=== PATIENT | male | born 1955 | race Caucasian/White ===

== ENCOUNTER 2017-04-13 08:46 | Emergency (ER) | payer OTHER ==
[~2017-04-13] VITALS: Ht 182.9 cm; Wt 90.5 kg
[~2017-04-13 08:46] MED LIST: LISI-725 PO; ROSU20TA PO
[2017-04-13 08:55] VITALS: Ht 182.9 cm; Wt 90.5 kg
[2017-04-13] MEDS ORDERED: XYLOCAINE 1%/SOD BICARB 20 ML VIAL INFIL ONE (09:15)
[2017-04-13] MEDS ORDERED: KFL500HP PO (09:29)
[2017-04-13] MEDS ORDERED: HYDR12.56 PO (09:29)
[2017-04-13] MEDS ORDERED: ROSU40TA18 PO (09:29)
--- NOTE | 2017-04-13 09:30 | DIAGNOSTIC IMAGING REPORT ---
RIGHT HAND 3 VIEWS HISTORY: RIGHT, ABSCESS DORSAL R HAND OVER 5TH METACARPAL Right COMPARISON: None. FINDINGS: There is no fracture or dislocation. Moderate osteoarthritis seen within the DIP, PIP, and first and second MCP joints. Dorsal soft tissue swelling. Most pronounced at the level of the fifth metacarpal. No bony destruction. No radiopaque foreign bodies. IMPRESSION: Dorsal soft tissue swelling most pronounced at the level of the fifth metacarpal. No underlying bony abnormality. Electronically signed by: Lexx Wells M.D. 04/13/2017 9:29 AM Dictated Date/Time: 04/13/2017 9:28 AM
[2017-04-13] MEDS ORDERED: SULF800T23 PO (10:38)
--- NOTE | 2017-04-13 10:39 | EMERGENCY ROOM VISIT NOTE ---
ED Visit Note First contact with patient: 08:59 CHIEF COMPLAINT: Infection on the right hand 6 days HISTORY OF PRESENT ILLNESS: Patient is a [id number] 61-year-old white male who presents emergency department for evaluation of an infection on his right hand. He states that his symptoms started about 6 days ago, when he woke up last Saturday with a small pimple on the dorsal aspect of his hand. He cleansed the area with hydrogen peroxide and popped it with the pain, got a small amount of purulent material to drain. He repeated this again on Saturday. He has been applying Neosporin. He was fine for a couple of days, then 2 days ago, he noticed increased swelling in the area, spreading across the dorsum of the hand. He was seen at a local [facility] facility and started on Keflex 500 mg 3 times a day 10 days. He is a total of 7 doses of antibiotic. He has been soaking in warm Epsom salts but his symptoms have not improved despite the antibiotics. He has not had any fevers. He notes some soreness that radiates towards his wrist. There has been no further drainage or discharge from the area. He denies any prior history of skin infections or abscesses. His tetanus is up-to-date. 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 REVIEW OF SYSTEMS: Review of systems as per HPI. All other systems reviewed were negative. At least 6 systems reviewed. PMH: Electronic medical records are reviewed and summarized as above/below. See Problem List. Tetanus is up-to-date. SOCIAL HISTORY: Patient lives at home with his . Employed. Smoker. PHYSICAL EXAM: Vital Signs: Reviewed Nurse's notes. CONSTITUTIONAL: Patient is a pleasant, well-appearing 61-year-old white male who is awake and alert and in no acute distress. INTEGUMENTARY: Examination of the dorsal aspect of the right hand show a tender , erythematous, fluctuant abscess, located over the proximal aspect of the fifth metacarpal region. There is diffuse swelling into the dorsum of the hand , no overt cellulitis changes however and no lymphangitic streaking is noted. The patient is able to flex and extend his fingers and his wrist fully without discomfort. Right upper extremity is neurovascularly intact. EMERGENCY DEPARTMENT COURSE: X-rays of the right hand were obtained, and negative for fracture or bony abnormality. Soft tissue swelling was noted. The patient's hand was prepped with Betadine and draped sterilely. 1% buffered lidocaine was infiltrated over the abscess. The abscess cavity was incised with a number 11 scalpel blade. A scant amount of purulent material drained, remainder was primarily blood. Culture was obtained and is pending. Abscess cavity was probed for loculations and there were none. Area was irrigated copiously using normal saline solution. A small amount of plain gauze packing dipped in Betadine was used as a wick. A bulky dressing was applied. Pending culture results, patient will be placed on Bactrim to take in addition to the Keflex that he is or anything on. He does not have any evidence for osteomyelitis. I do not suspect infectious tenosynovitis, there is no evidence for cellulitis. Patient was encouraged to apply warm compresses to the area, dressing changes as needed, remove the packing in 48 hours and recheck with either his PCP or return to the emergency department for any worsening symptoms. He expressed understanding of this and was agreeable. Medication reconciliation: I attest that I have personally reviewed the patient' s current medication list. Blood pressure screening : Patient was found to have normal blood pressure on screening and does not require follow-up. RIGHT HAND 3 VIEWS HISTORY: RIGHT, ABSCESS DORSAL R HAND OVER 5TH METACARPAL Right COMPARISON: None. FINDINGS: There is no fracture or dislocation. Moderate osteoarthritis seen within the DIP, PIP, and first and second MCP joints. Dorsal soft tissue swelling. Most pronounced at the level of the fifth metacarpal. No bony destruction. No radiopaque foreign bodies. IMPRESSION: Dorsal soft tissue swelling most pronounced at the level of the fifth metacarpal. No underlying bony abnormality. Problem List Medical Problems: (1) Hyperlipidemia Nec/Nos Status: Chronic (2) Hypertension Nos Status: Chronic (3) Laceration of finger Status: Resolved Current/Historical Medications Scheduled Cephalexin Monohydrate (Cephalexin), 1 CAP PO TID Hydrochlorothiazide (Hctz), 12.5 MG PO QAM Lisinopril (Zestril), 20 MG PO QAM Rosuvastatin Calcium (Rosuvastatin Calcium), 40 MG PO QAM Sulfa/Trimethoprim (Bactrim Ds 800MG/160MG), 1 TAB PO BID Allergies Coded Allergies: No Known Allergies (Unverified , 04/13/17) Vital Signs Date Time Temp Pulse Resp B/P (MAP) Pulse Ox O2 Delivery O2 Flow Rate FiO2 04/13/17 10:59 86 18 137/84 96 04/13/17 10:40 86 18 137/84 96 Room Air 04/13/17 08:55 36.8 87 18 130/105 96 Room Air Departure Information Impression Primary Impression: Abscess of hand, right Prescriptions Sulfa/Trimethoprim (Bactrim Ds 800MG/160MG) Tab 1 TAB PO BID, #20 TAB Prov: Sheri Aldrich PA 04/13/17 Referrals Marion Tellez M.D. (PCP) Patient Instructions My [facility] Additional Instructions Continue cephalexin (Keflex) as prescribed. Trimethoprim-Sulfamethoxazole(Bactrim DS): Take one pill twice daily for 10 days for your skin infection. All antibiotics can cause diarrhea. If this occurs and you feel worse or it does not resolve in 1-2 days follow up with your doctor or return to the Emergency Department as this could be signs of serious underlying problems. Any medication can cause an allergic reaction, stop the pills immediately and return to the ER for rash, hives, breathing difficulties, or swelling Ibuprofen(Motrin, Advil) may be used for fever or pain. Use 600mg every six hours as needed. Take with food. Avoid using more than 2400mg in a 24 hour period. Do not use 2400mg per day for more than three consecutive days without physician direction. Prolonged inappropriate use can lead to stomach upset or ulcers. (AND/OR) Acetaminophen(Tylenol) may be used for fever or pain. Use 1000mg every six hours as needed. Avoid using more than 3000mg in a 24 hour period. Warm compresses to the affected area 4 times daily for 15-20 minutes. Dressing changes daily, more often if it becomes saturated or soiled. Rest and drink plenty of fluids. Continue current medications. Return to the ER on Saturday for packing removal, immediately for severe pain, persistent fevers, spreading redness, or any worsening of your condition. Follow up with your primary physician within 2-3 days for a recheck of the current condition.
[2017-04-13 10:59] VITALS: BP 137/84; PULSE 86; O2SAT 96
--- NOTE | 2017-04-15 15:52 | Pharmacy Progress Note ---
ED Pharmacist Culture FollowUp Date of Service: Apr 15, 2017. Patient's R hand abscess cx is growing grant-sensitive MSSA. Following I+D he was placed on Bactrim DS 1 PO BID x 10 days and was instructed to continue taking the Keflex he had been taking for several days prior to presentation. I reviewed the case with A [facility] PAC to determine if abx deescalation is possible. Mira agreed that the Keflex could be d/c'd if he has improved since seen in the ER. I spoke with the patient's who stated the wound swelling and redness has gone done, she does report that some drainage continues. I advised the patient's that the Keflex may be d/c'd at this time if the patient feels the wound has improved as the organism is sensitive to both antibiotics. I advise that he should be reevaluated if increased swelling redness warmth or drainage observed.
== END 2017-04-13 10:59 | disposition home or self-care (01) ==
LOC: C.EDB 08:46 → C.EDA 10:59
DX: L02.511 Cutaneous abscess of right hand (principal); I10 Essential (primary) hypertension; E78.5 Hyperlipidemia, unspecified; F17.200 Nicotine dependence, unspecified, uncomplicated; Z79.899 Other long term (current) drug therapy